=== PATIENT | female | born 1960 | race Caucasian/White ===

== ENCOUNTER 2017-02-02 14:18 | Emergency (ER) | payer BC ==
[~2017-02-02] VITALS: Ht 167.6 cm; Wt 76.0 kg
[~2017-02-02 14:18] MED LIST: DIAZ10TA PO; OMEP20TA PO; TRAZ150T75 PO; VARE1 PO
[2017-02-02 14:25] VITALS: BP 143/94; PULSE 61; RESP 16; TEMP 97.8; O2SAT 97
[2017-02-02] MEDS ORDERED: TRAZ100T6 PO (15:16)
[2017-02-02] MEDS ORDERED: PROG100C PO (15:16)
[2017-02-02] MEDS ORDERED: TEMA15CA PO (15:16)
[2017-02-02] MEDS ORDERED: ESTR1TAB PO (15:16)
[2017-02-02] MEDS ORDERED: SERT-129 PO (15:16)
[2017-02-02] MEDS ORDERED: DIAZ5TAB PO (15:16)
--- NOTE | 2017-02-02 15:25 | PD ---
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 Patient states that she went through menopause at age 52 which is 4 years ago. Patient started having low back pain and abdominal cramping pain about 10 days ago. Patient states that the pain lasted for several days. Patient started having vaginal bleeding for the past 6 days since then. Patient denies any headache. Patient denies any chest pain or shortness of breath. Patient denies abdominal pain now. Patient denies any dysuria or frequency. Patient denies any fever chills. Patient denies any back pain now. Patient has history of anxiety and taking Valium as needed for that. PFSH Past Medical History Hx Anticoagulant Therapy: No ADD: Yes Bipolar Disorder: Yes Anxiety: Yes Depression: Yes Diabetes: No Diminished Hearing: No Pancreatitis: Yes ?: Not Menopausal: Yes Past Surgical History Section: Yes (1982, 1986, 1988) Cholecystectomy: Yes (2004) Pacemaker: No Tonsillectomy: Yes (CHILDHOOD) Social History Alcohol Use: No (PT STATES IN RECOVERY started 5 wks.ago) Tobacco Use: No (QUIT 5 WKS. AGO) Substance Use: Yes (MARIJUANA)) Allergies-Medications (Allergen,Severity, Reaction): Coded Allergies: No Known Allergies (Verified , 02/02/17) Reported Meds & Prescriptions Reported Meds & Active Scripts Active Reported Estradiol 1 Mg Tab 1 Mg PO DAILY Trazodone (Trazodone HCl) 100 Mg Tablet 150 Mg PO BID Diazepam 5 Mg Tab 5 Mg PO Q4HR PRN Sertraline (Sertraline HCl) 100 Mg Tab 100 Mg PO DAILY Progesterone Micronized 100 Mg Cap 100 Mg PO DAILY Temazepam 15 Mg Cap 15 Mg PO HS PRN Review of Systems General / Constitutional: No: Fever Eyes: No: Visual changes HENT: No: Headaches Cardiovascular: No: Chest Pain or Discomfort Respiratory: No: Shortness of Breath Gastrointestinal: Positive: Abdominal Pain Genitourinary: Positive: Pelvic Pain, Vaginal Bleeding, No: Dysuria Musculoskeletal: No: Pain Skin: No Rash Neurologic: No: Weakness Psychiatric: No: Depression Endocrine: No: Polydipsia Hematologic/Lymphatic: No: Easy Bruising Physical Exam Narrative GENERAL: Well-nourished, well-developed patient. SKIN: Focused skin assessment warm/dry. HEAD: Normocephalic. EYES: No scleral icterus. No injection or drainage. NECK: Supple, trachea midline. No JVD or lymphadenopathy. CARDIOVASCULAR: Regular rate and rhythm without murmurs, gallops, or rubs. RESPIRATORY: Breath sounds equal bilaterally. No accessory muscle use. GASTROINTESTINAL: Abdomen soft, non-tender, nondistended. MUSCULOSKELETAL: No cyanosis, or edema. BACK: Nontender without obvious deformity. No CVA tenderness. DEVELOPMENT EXECUTIVE exam: Patient has small amount of blood in the vaginal vault. The cervix is closed. Uterus is mildly enlarged and nontender on palpation. No adnexal mass or tenderness. Data Data Last Documented VS Vital Signs Date Time Temp Pulse Resp B/P Pulse Ox O2 Delivery O2 Flow Rate FiO2 02/02/17 15:48 75 20 136/89 99 Room Air 02/02/17 14:25 97.8 Orders Complete Blood Count With Diff (02/02/17 15:18) Comprehensive Metabolic Panel (02/02/17 15:18) Us Pelvis Comp Film Technician/Non-Preg (02/02/17 ) Urinalysis - C+S If Indicated (02/02/17 15:18) Iv Access Insert/Monitor (02/02/17 15:18) Ecg Monitoring (02/02/17 15:18) Sodium Chlor 0.9% 1000 Ml Inj (Ns 1000 M (02/02/17 15:30) Lorazepam Inj (Ativan Inj) (02/02/17 15:30) MDM Medical Decision Making Medical Screen Exam Complete: Yes Emergency Medical Condition: Yes Differential Diagnosis Differential diagnosis including breakthrough bleeding, postmenopausal bleeding , uterine mass. Narrative Course 56-year-old female complains of postmenopausal vaginal bleeding. Diagnosis Primary Impression: Post-menopausal bleeding Loc Hutchinson MD Feb 02, 2017 15:25
[2017-02-02] MEDS ORDERED: SODIUM CHLOR 0.9% 1000 ML INJ 1,000 ML IV SCH (15:30)
[2017-02-02] MEDS ORDERED: LORazepam 2 MG/ML VIAL IV PUSH ONE (15:30)
[2017-02-02 15:42] LABS: BLOOD, URINE LARGE (NEG); GLUCOSE,URINE NEG (NEG); KETONE, URINE NEG (NEG); NITRITE,URINE NEG (NEG)
[2017-02-02 15:47] LABS: AUTOMATED NEUTROPHIL # 5.5 TH/MM3 (1.8-7.7); BASOPHIL # 0.1 TH/MM3 (0-0.2); BASOPHIL % 0.8 % (0.0-2.0); EOSINOPHIL # 0.2 TH/MM3 (0-0.4); EOSINOPHIL % 2.3 % (0.0-4.0); HEMATOCRIT 38.2 % (35.0-46.0); LYMPHOCYTE # 2.4 TH/MM3 (1.0-4.8); MEAN CELL VOLUME 90.5 FL (80.0-100.0); MEAN CORPUSCULAR HEMOGLOBIN 30.7 PG (27.0-34.0); MEAN CORPUSCULAR HGB CONC 33.9 % (32.0-36.0); MONO % 5.2 % (0.0-8.0); NEUT % 64.7 % (16.0-70.0); PLATELET COUNT 113 TH/MM3 (150-450); RED BLOOD COUNT 4.22 MIL/MM3 (4.00-5.30); RED CELL DISTRIBUTION WIDTH 12.4 % (11.6-17.2); WHITE BLOOD COUNT 8.7 TH/MM3 (4.0-11.0)
[2017-02-02 15:48] VITALS: BP 136/89; PULSE 75; RESP 20; O2SAT 99
[2017-02-02 15:48] LABS: HEMO FLAGS DIFF FINAL
[2017-02-02 15:55] LABS: CHLORIDE 109 MEQ/L (98-107); POTASSIUM 3.5 MEQ/L (3.5-5.1); SODIUM (NA) 144 MEQ/L (136-145)
[2017-02-02 15:59] LABS: ANION GAP 10 MEQ/L (5-15); BICARBONATE 25.5 MEQ/L (21.0-32.0); BLOOD UREA NITROGEN 13 MG/DL (7-18)
[2017-02-02 16:02] LABS: ALT (GPT) 35 U/L (10-53); AST (GOT) 15 U/L (15-37); GLOMERULAR FILTRATION RATE 106 ML/MIN (>89)
[2017-02-02 16:03] LABS: TOTAL BILIRUBIN ADULT 0.7 MG/DL (0.2-1.0)
[2017-02-02 16:05] LABS: ALKALINE PHOSPHATASE 78 U/L (45-117)
[2017-02-02 16:09] LABS: METHOD OF COLLECTION CLEAN CATCH; MUCUS URINE FEW /lpf (OCC); RBC, URINE 15-19 /hpf (0-3); URINE COLOR YELLOW (YELLW/STRAW); WBC, URINE 0-2 /hpf (0-5)
[2017-02-02 16:10] LABS: COMMENT (UR) CULT NOT INDICATED; CULTURE IF INDICATED CULT NOT INDICATED
--- NOTE | 2017-02-02 16:29 | RADHPO ---
EXAM DATE/TIME: 02/02/2017 16:01 [facility] COMPARISON: No previous studies available for comparison. INDICATIONS : Post menopausal bleeding. MEDICAL HISTORY : Pancreatitis. Seizures. Bipolar disorder. Depression. Anxiety. SURGICAL HISTORY : Tonsillectomy. Cholecystectomy. section. Removal of choledocholithiasis. ENCOUNTER: Initial ACUITY: 2 days PAIN SCORE: 1/10 LOCATION: Bilateral pelvis MEASUREMENTS: UTERUS: 10.4 x 4.3 x 6.4 cm ENDOMETRIAL STRIPE: 5 mm RIGHT OVARY: 1.9 x 1.2 x 1.2 cm LEFT OVARY: 2.4 x 1.2 x 1.8 cm FINDINGS: UTERUS: The myometrium has homogeneous echotexture without mass. Endometrial stripe is homogeneous. RIGHT OVARY: Ovary contains no mass or significant cystic lesion. LEFT OVARY: Ovary contains no mass or significant cystic lesion. MISCELLANEOUS: No free fluid. CONCLUSION: 1. Unremarkable pelvic ultrasound examination. Specifically, homogeneous normal appearing endometrial stripe. Bonifacio Elkins MD on February 02, 2017 at 16:25 Board Certified Radiologist. This report was verified electronically.
--- NOTE | 2017-02-02 16:34 | PD ---
Physical Exam Narrative Received sign out from previous team to follow up labs and US. 56yo F with post menopausal vaginal bleeding for 6 days. VS stable. Labs reviewed, no leukocytosis. H/H stable at 12.9/38.2. Mild thrombocytopenia at 113,000, pt had mild thrombocytopenia before. CMP unremarkable. Pt has no abdominal tenderness on exam. US unremarkable. Normal endometrial stripe. Pt states she is on estrogen and progesterone for menopausal symptoms. This bleeding may be related to hormone use but pt still needs to follow up with [facility] for endometrial biopsy to r/o endometrial cancer in vaginal bleeding in post menopausal woman. Instructed pt to follow up with [facility] as outpatient. 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 (02/02/17 ) Urinalysis - C+S If Indicated (02/02/17 15:18) Iv Access Insert/Monitor (02/02/17 15:18) Ecg Monitoring (02/02/17 15:18) Sodium Chlor 0.9% 1000 Ml Inj (Ns 1000 M (02/02/17 15:30) Lorazepam Inj (Ativan Inj) (02/02/17 15:30) Labs Laboratory Tests Test 02/02/17 02/02/17 15:20 15:33 Urine Collection Type CLEAN CATCH Urine Color YELLOW Urine Turbidity CLEAR Urine pH 6.0 Urine Specific [place] 1.025 Urine Protein NEG mg/dL Urine Glucose (UA) NEG mg/dL Urine Ketones NEG mg/dL Urine Occult Blood LARGE Urine Nitrite NEG Urine Bilirubin NEG Urine Leukocyte Esterase NEG Urine RBC 15-19 /hpf Urine WBC 0-2 /hpf Urine Squamous Epithelial 6-8 /hpf Cells Urine Mucus FEW /lpf Microscopic Urinalysis Comment CULT NOT INDICATED Urine Collection Time 15:20 White Blood Count 8.7 TH/MM3 Red Blood Count 4.22 MIL/MM3 Hemoglobin 12.9 GM/DL Hematocrit 38.2 % Mean Corpuscular Volume 90.5 FL Mean Corpuscular Hemoglobin 30.7 PG Mean Corpuscular Hemoglobin 33.9 % Concent Red Cell Distribution Width 12.4 % Platelet Count 113 TH/MM3 Mean Platelet Volume 10.1 FL Neutrophils (%) (Auto) 64.7 % Lymphocytes (%) (Auto) 27.0 % Monocytes (%) (Auto) 5.2 % Eosinophils (%) (Auto) 2.3 % Basophils (%) (Auto) 0.8 % Neutrophils # (Auto) 5.5 TH/MM3 Lymphocytes # (Auto) 2.4 TH/MM3 Monocytes # (Auto) 0.5 TH/MM3 Eosinophils # (Auto) 0.2 TH/MM3 Basophils # (Auto) 0.1 TH/MM3 CBC Comment DIFF FINAL Differential Comment Sodium Level 144 MEQ/L Potassium Level 3.5 MEQ/L Chloride Level 109 MEQ/L Carbon Dioxide Level 25.5 MEQ/L Anion Gap 10 MEQ/L Blood Urea Nitrogen 13 MG/DL Creatinine 0.59 MG/DL Estimat Glomerular Filtration 106 ML/MIN Rate Random Glucose 91 MG/DL Calcium Level 8.5 MG/DL Total Bilirubin 0.7 MG/DL Aspartate Amino Transf 15 U/L (AST/SGOT) Alanine Aminotransferase 35 U/L (ALT/SGPT) Alkaline Phosphatase 78 U/L Total Protein 7.1 GM/DL Albumin 3.8 GM/DL MDM Supervised Visit with NI: No Diagnosis Primary Impression: Post-menopausal bleeding Referrals: Magy Womack MD call for appointment Post menopausal bleeding. Patient Instructions: General Instructions Departure Forms: Tests/Procedures Additional Instruction: Please follow up with mill stenciler in 1-2 days for work up of post menopausal bleeding. Med/Other Pt SpecificInfo: No Change to Meds Disposition: 01 DISCHARGE HOME Condition: Stable (ERASED) Chelsi Vigil DO Feb 02, 2017 16:34
== END 2017-02-02 16:55 | disposition home or self-care (01) ==
LOC: PHED 14:18
DX: N95.0 Postmenopausal bleeding (principal)
CPT/HCPCS: 76856; 80053; 81001; 85025; 96361; 96374; 99285; J2060; J7030

== ENCOUNTER 2018-01-24 18:46 | Emergency (ER) | payer SELFPAY ==
[~2018-01-24] VITALS: Ht 165.1 cm; Wt 82.0 kg
[~2018-01-24 18:46] MED LIST changes: -DIAZ10TA PO; +DIAZ5TAB PO; +ESTR1TAB PO; -OMEP20TA PO; +PROG100C PO; +SERT-129 PO; +TEMA15CA PO; +TRAZ100T10 PO; -TRAZ150T75 PO; -VARE1 PO
[2018-01-24 18:48] VITALS: PULSE 87; RESP 16; TEMP 97.5; O2SAT 100
--- NOTE | 2018-01-24 19:14 | PD ---
HPI Chief Complaint: Abdominal Pain Time Seen by Provider: 19:08 Travel History International Travel<30 days: No Contact w/Intl Traveler<30days: No Traveled to known affect area: No History of Present Illness HPI 57-year-old female presented the ER for evaluation of abdominal pain. Abdominal pain rated 8 out of 10, comes and goes for the last few days, located in the right upper quadrant, dull in nature, nothing makes it better but movement makes it worse, associated with nausea but no vomiting. Patient is been having the pain for the last 3 days but decided to come to the ER today since the pain is been getting worse. She has no fever or shortness of breath or chest pain, she has no diarrhea and have a normal bowel movement. Patient has history of gastritis in the past but states she does not take anything for it, she also has history of post manic stress disorder and ulcerative colitis. Patient states that she does not take anything for her ulcerative colitis, she only took half a pill of her psychiatric medications but she was about to throw it up, she tried cranberry juice for her pain but that did not help. Patient had a colonoscopy about 2 years ago in an outside hospital and she states that how she was diagnosed with ulcerative colitis. PFSH Past Medical History Hx Anticoagulant Therapy: No ADD: Yes Bipolar Disorder: Yes Anxiety: Yes Depression: Yes Diabetes: No Diminished Hearing: No Pancreatitis: Yes ?: Not Menopausal: Yes Past Surgical History Section: Yes (1982, 1986, 1988) Cholecystectomy: Yes (2004) Pacemaker: No Tonsillectomy: Yes (CHILDHOOD) Social History Alcohol Use: No (PT STATES IN RECOVERY started 5 wks.ago) Tobacco Use: No (QUIT 5 WKS. AGO) Substance Use: Yes (MARIJUANA)) Allergies-Medications (Allergen,Severity, Reaction): Coded Allergies: No Known Allergies (Verified Allergy, Unknown, 01/24/18) Reported Meds & Prescriptions Reported Meds & Active Scripts Active Reported Tylenol (Acetaminophen) 325 Mg Tab 650 Mg PO Q4H PRN Ibuprofen 400 Mg Tab 400 Mg PO Q6H PRN Venlafaxine ER 24 HR (Venlafaxine HCl) 150 Mg Cap 150 Mg PO DAILY Xanax (Alprazolam) 2 Mg Tab 2 Mg PO Q8H PRN Trazodone (Trazodone HCl) 100 Mg Tablet 150 Mg PO BID Temazepam 15 Mg Cap 15 Mg PO HS PRN Review of Systems Except as stated in HPI: all other systems reviewed are Neg Physical Exam Narrative GENERAL: Alert oriented 3 no acute distress SKIN: Focused skin assessment warm/dry. HEAD: Atraumatic. Normocephalic. EYES: Pupils equal and round. No scleral icterus. No injection or drainage. ENT: No nasal bleeding or discharge. Mucous membranes pink and moist. NECK: Trachea midline. No JVD. CARDIOVASCULAR: Regular rate and rhythm. No murmur appreciated. RESPIRATORY: No accessory muscle use. Clear to auscultation. Breath sounds equal bilaterally. GASTROINTESTINAL: Mild right upper quadrant tenderness without rebound, no masses, abdomen soft, distended. Hepatic and splenic margins not palpable. MUSCULOSKELETAL: No obvious deformities. No clubbing. No cyanosis. No edema. NEUROLOGICAL: Awake and alert. No obvious cranial nerve deficits. Motor grossly within normal limits. Normal speech. PSYCHIATRIC: Appropriate mood and affect; insight and judgment normal. Data Data Last Documented VS Vital Signs Date Time Temp Pulse Resp B/P (MAP) Pulse Ox O2 Delivery O2 Flow Rate FiO2 01/24/18 19:05 20 01/24/18 18:48 97.5 87 100 Orders Orders Complete Blood Count With Diff (01/24/18 19:08) Comprehensive Metabolic Panel (01/24/18 19:08) Lipase (01/24/18 19:08) Act Partial Throm Time (Ptt) (01/24/18 19:08) Prothrombin Time / Inr (Pt) (01/24/18 19:08) Troponin I (01/24/18 19:08) Urinalysis - C+S If Indicated (01/24/18 19:08) Ct Abd/Pel W Iv Contrast(Rout) (01/24/18 ) Lorazepam Inj (Ativan Inj) (01/24/18 19:15) Sodium Chlor 0.9% 1000 Ml Inj (Ns 1000 M (01/24/18 19:15) Pantoprazole Inj (Protonix Inj) (01/24/18 19:15) Iohexol 350 Inj (Omnipaque 350 Inj) (01/24/18 20:17) Potassium Chloride (Kcl) (01/24/18 20:30) Ed Discharge Order (01/24/18 20:53) Labs Laboratory Tests Test 01/24/18 19:30 White Blood Count 9.5 TH/MM3 Red Blood Count 4.94 MIL/MM3 Hemoglobin 15.2 GM/DL Hematocrit 44.1 % Mean Corpuscular Volume 89.4 FL Mean Corpuscular Hemoglobin 30.9 PG Mean Corpuscular Hemoglobin Concent 34.5 % Red Cell Distribution Width 11.8 % Platelet Count 146 TH/MM3 Mean Platelet Volume 9.6 FL Neutrophils (%) (Auto) 58.3 % Lymphocytes (%) (Auto) 30.2 % Monocytes (%) (Auto) 7.4 % Eosinophils (%) (Auto) 2.2 % Basophils (%) (Auto) 1.9 % Neutrophils # (Auto) 5.5 TH/MM3 Lymphocytes # (Auto) 2.9 TH/MM3 Monocytes # (Auto) 0.7 TH/MM3 Eosinophils # (Auto) 0.2 TH/MM3 Basophils # (Auto) 0.2 TH/MM3 CBC Comment DIFF FINAL Differential Comment Prothrombin Time 11.2 SEC Prothromb Time International Ratio 1.1 RATIO Activated Partial Thromboplast Time 24.1 SEC Urine Color YELLOW Urine Turbidity CLEAR Urine pH 6.0 Urine Specific [place] 1.020 Urine Protein NEG mg/dL Urine Glucose (UA) NEG mg/dL Urine Ketones NEG mg/dL Urine Occult Blood NEG Urine Nitrite NEG Urine Bilirubin NEG Urine Urobilinogen 0.2 MG/DL Urine Leukocyte Esterase NEG Urine RBC 0-3 /hpf Urine Squamous Epithelial Cells 0-5 /hpf Urine Bacteria RARE /hpf Urine Mucus FEW /lpf Microscopic Urinalysis Comment CULT NOT INDICATED Blood Urea Nitrogen 12 MG/DL Creatinine 0.57 MG/DL Random Glucose 88 MG/DL Total Protein 7.9 GM/DL Albumin 4.0 GM/DL Calcium Level 8.9 MG/DL Alkaline Phosphatase 103 U/L Aspartate Amino Transf (AST/SGOT) 31 U/L Alanine Aminotransferase (ALT/SGPT) 58 U/L Total Bilirubin 0.8 MG/DL Sodium Level 138 MEQ/L Potassium Level 3.2 MEQ/L Chloride Level 106 MEQ/L Carbon Dioxide Level 23.0 MEQ/L Anion Gap 9 MEQ/L Estimat Glomerular Filtration Rate 110 ML/MIN Troponin I LESS THAN 0.02 NG/ML Lipase 122 U/L MDM Medical Decision Making Medical Screen Exam Complete: Yes Emergency Medical Condition: Yes Differential Diagnosis Gastritis, GERD, perforation, peptic ulcer disease. Narrative Course 57-year-old female here for evaluation of abdominal pain. Physical examination is unremarkable, vitals are stable and she is not in acute distress. Patient was given IV Protonix and she dramatically improved, labs are within normal limits, scan shows no acute findings. Patient denies any vomiting or any blood in the stool and says that she feels much better after the Protonix. I will give the patient a trial of Protonix to take home with her meanwhile I encouraged her to follow-up with his [facility] clinic and to return here if symptoms change or do not improve. Patient may need EGD to rule out any peptic ulcer disease and she may need workup for H pylori if her symptoms continue to mother and I explained those issues with the patient and she understands. Last 24 hours Impressions Abdomen/Pelvis CT 01/24/18 0000 Signed Impressions: CONCLUSION: 1. No acute findings on abdomen and pelvic CT. Mild fatty liver. Previous chol ecystectomy. Laboratory Tests Test 01/24/18 19:30 White Blood Count 9.5 TH/MM3 Red Blood Count 4.94 MIL/MM3 Hemoglobin 15.2 GM/DL Hematocrit 44.1 % Mean Corpuscular Volume 89.4 FL Mean Corpuscular Hemoglobin 30.9 PG Mean Corpuscular Hemoglobin Concent 34.5 % Red Cell Distribution Width 11.8 % Platelet Count 146 TH/MM3 Mean Platelet Volume 9.6 FL Neutrophils (%) (Auto) 58.3 % Lymphocytes (%) (Auto) 30.2 % Monocytes (%) (Auto) 7.4 % Eosinophils (%) (Auto) 2.2 % Basophils (%) (Auto) 1.9 % Neutrophils # (Auto) 5.5 TH/MM3 Lymphocytes # (Auto) 2.9 TH/MM3 Monocytes # (Auto) 0.7 TH/MM3 Eosinophils # (Auto) 0.2 TH/MM3 Basophils # (Auto) 0.2 TH/MM3 CBC Comment DIFF FINAL Differential Comment Prothrombin Time 11.2 SEC Prothromb Time International Ratio 1.1 RATIO Activated Partial Thromboplast Time 24.1 SEC Urine Color YELLOW Urine Turbidity CLEAR Urine pH 6.0 Urine Specific [place] 1.020 Urine Protein NEG mg/dL Urine Glucose (UA) NEG mg/dL Urine Ketones NEG mg/dL Urine Occult Blood NEG Urine Nitrite NEG Urine Bilirubin NEG Urine Urobilinogen 0.2 MG/DL Urine Leukocyte Esterase NEG Urine RBC 0-3 /hpf Urine Squamous Epithelial Cells 0-5 /hpf Urine Bacteria RARE /hpf Urine Mucus FEW /lpf Microscopic Urinalysis Comment CULT NOT INDICATED Blood Urea Nitrogen 12 MG/DL Creatinine 0.57 MG/DL Random Glucose 88 MG/DL Total Protein 7.9 GM/DL Albumin 4.0 GM/DL Calcium Level 8.9 MG/DL Alkaline Phosphatase 103 U/L Aspartate Amino Transf (AST/SGOT) 31 U/L Alanine Aminotransferase (ALT/SGPT) 58 U/L Total Bilirubin 0.8 MG/DL Sodium Level 138 MEQ/L Potassium Level 3.2 MEQ/L Chloride Level 106 MEQ/L Carbon Dioxide Level 23.0 MEQ/L Anion Gap 9 MEQ/L Estimat Glomerular Filtration Rate 110 ML/MIN Troponin I LESS THAN 0.02 NG/ML Lipase 122 U/L Diagnosis Primary Impression: Gastritis Qualified Codes: K29.00 - Acute gastritis without bleeding Referrals: [facility] Additional Instructions: Follow-up with the clinic and return here if symptoms change or do not improve. Scripts Pantoprazole (Protonix) 40 Mg Tab 40 MG PO DAILY for Reflux, #14 TAB 0 Refills Prov: Leif Hess MD 01/24/18 Disposition: DISCHARGE HOME Condition: Stable Leif Hess MD Jan 24, 2018 19:14
[2018-01-24] MEDS ORDERED: PANTOPRAZOLE SODIUM 40 MG VIAL IV PUSH ONE (19:15)
[2018-01-24] MEDS ORDERED: LORazepam 2 MG/ML VIAL IV PUSH ONE (19:15)
[2018-01-24] MEDS ORDERED: SODIUM CHLOR 0.9% 1000 ML INJ 1,000 ML IV ONE (19:15)
[2018-01-24] MEDS ORDERED: XANA2TAB2 PO (19:16)
[2018-01-24] MEDS ORDERED: IBUP1TAB5 PO (19:16)
[2018-01-24] MEDS ORDERED: VENL150C39 PO (19:16)
[2018-01-24] MEDS ORDERED: TYLE325T PO (19:16)
[2018-01-24 19:48] LABS: AUTOMATED NEUTROPHIL # 5.5 TH/MM3 (1.8-7.7); BASOPHIL # 0.2 TH/MM3 (0-0.2); BASOPHIL % 1.9 % (0.0-2.0); BILIRUBIN, URINE NEG (NEG); BLOOD, URINE NEG (NEG); EOSINOPHIL # 0.2 TH/MM3 (0-0.4); EOSINOPHIL % 2.2 % (0.0-4.0); GLUCOSE,URINE NEG (NEG); HEMATOCRIT 44.1 % (35.0-46.0); HEMOGLOBIN 15.2 GM/DL (11.6-15.3); KETONE, URINE NEG (NEG); LYMPH % 30.2 % (9.0-44.0); LYMPHOCYTE # 2.9 TH/MM3 (1.0-4.8); MEAN CELL VOLUME 89.4 FL (80.0-100.0); MEAN CORPUSCULAR HEMOGLOBIN 30.9 PG (27.0-34.0); MEAN CORPUSCULAR HGB CONC 34.5 % (32.0-36.0); MEAN PLATELET VOLUME 9.6 FL (7.0-11.0); MONO % 7.4 % (0.0-8.0); MONOCYTE # 0.7 TH/MM3 (0-0.9); NEUT % 58.3 % (16.0-70.0); NITRITE,URINE NEG (NEG); PLATELET COUNT 146 TH/MM3 (150-450); RED BLOOD COUNT 4.94 MIL/MM3 (4.00-5.30); RED CELL DISTRIBUTION WIDTH 11.8 % (11.6-17.2); URINE COLOR YELLOW (YELLW/STRAW); URINE LEUKOCYTE ESTERASE NEG (NEG); WHITE BLOOD COUNT 9.5 TH/MM3 (4.0-11.0)
[2018-01-24 19:53] LABS: MUCUS URINE FEW /lpf (OCC)
[2018-01-24 19:55] LABS: BACTERIA, URINE RARE /hpf; RBC, URINE 0-3 /hpf (0-3); SQUAMOUS EPITHELIAL CELL URINE 0-5 /hpf (0-5)
[2018-01-24 19:56] LABS: CHLORIDE 106 MEQ/L (98-107); SODIUM (NA) 138 MEQ/L (136-145)
[2018-01-24 20:00] LABS: CALCIUM 8.9 MG/DL (8.5-10.1); INTERNATIONAL NORMALIZED RATIO 1.1 RATIO; PROTHROMBIN TIME - PATIENT 11.2 SEC (9.8-11.6)
[2018-01-24 20:01] LABS: BLOOD UREA NITROGEN 12 MG/DL (7-18); GLUCOSE,RANDOM 88 MG/DL (74-106)
[2018-01-24 20:03] LABS: ALT (GPT) 58 U/L (10-53); AST (GOT) 31 U/L (15-37)
[2018-01-24 20:04] LABS: CREATININE 0.57 MG/DL (0.50-1.00); GLOMERULAR FILTRATION RATE 110 ML/MIN (>89)
[2018-01-24 20:05] LABS: TOTAL BILIRUBIN ADULT 0.8 MG/DL (0.2-1.0); TOTAL PROTEIN 7.9 GM/DL (6.4-8.2)
[2018-01-24 20:06] LABS: ALKALINE PHOSPHATASE 103 U/L (45-117)
[2018-01-24 20:08] LABS: TROPONIN I LESS THAN 0.02 NG/ML (0.02-0.05)
[2018-01-24] MEDS ORDERED: IOHEXOL 350 MG/ML 10 ML VIAL (for RAD DIAG) IVCONTRAST ONE (20:17)
[2018-01-24] MEDS ORDERED: POTASSIUM CHLORIDE 20 MEQ CONTROLLED RELEASE TAB PO ONE (20:30)
--- NOTE | 2018-01-24 20:41 | RADRPT ---
EXAM DATE: 01/24/2018 8:20 PM EDT AGE/SEX: 57 years / Female INDICATIONS: Right upper quadrant pain for two days. CLINICAL DATA: This is the patient's initial encounter. Patient reports that signs and symptoms have been present for 2 days and indicates a pain score of 8/10. MEDICAL/SURGICAL HISTORY: Pancreatitis. Cholecystectomy. section. ORAL CONTRAST: No oral contrast ingested. RADIATION DOSE: 17.18 CTDI (mGy) COMPARISON: No prior [facility] exams available for comparison. TECHNIQUE: Multiple contiguous axial images were obtained through the abdomen and pelvis following b olus infusion of 100 ml Omnipaque 350 (iohexol) nonionic water-soluble contrast as a single exam do se. No oral contrast ingested. Using automated exposure control and adjustment of the mA and/or kV a ccording to patient size, the radiation dose was kept as low as reasonably achievable to obtain optim al diagnostic quality images. FINDINGS: Lung bases are clear. Mild fatty liver. Spleen, adrenals, kidneys and pancreas unremarkable. Postoperative cholecystectomy. There is no free air or free fluid. No bowel obstruction. No adenopathy. No acute bony abnormalities. CONCLUSION: 1. No acute findings on abdomen and pelvic CT. Mild fatty liver. Previous cholecystectomy. Electronically signed by: Vinny Devi MD 01/24/2018 8:40 PM EDT
[2018-01-24] MEDS ORDERED: PROT40TA PO ×2 (20:56→20:57)
[2018-01-24 21:10] VITALS: BP 140/92
== END 2018-01-24 21:12 | disposition home or self-care (01) ==
LOC: PHED 18:46
DX: K29.00 Acute gastritis without bleeding (principal); F31.9 Bipolar disorder, unspecified; F41.9 Anxiety disorder, unspecified; K51.90 Ulcerative colitis, unspecified, without complications; F12.90 Cannabis use, unspecified, uncomplicated; Z87.891 Personal history of nicotine dependence
CPT/HCPCS: 74177; 80053; 81001; 83690; 84484; 85025; 85610; 85730; 96361; 96374; 96375; 99285; C9113; J2060; J7030; Q9967

== ENCOUNTER 2018-02-10 17:39 | Emergency (ER) | payer SELFPAY ==
[~2018-02-10] VITALS: Ht 167.6 cm; Wt 80.0 kg
[~2018-02-10 17:39] MED LIST changes: -DIAZ5TAB PO; -ESTR1TAB PO; +IBUP1TAB5 PO; -PROG100C PO; +PROT40TA PO; -SERT-129 PO; +TYLE325T PO; +VENL150C39 PO; +XANA2TAB2 PO
[2018-02-10 17:46] VITALS: BP 152/90; PULSE 80; RESP 18; TEMP 97.2; O2SAT 96
--- NOTE | 2018-02-10 18:02 | PD ---
HPI Chief Complaint: Oral / Dental Pain or Problem Time Seen by Provider: 17:57 Travel History International Travel<30 days: No Contact w/Intl Traveler<30days: No Traveled to known affect area: No History of Present Illness HPI 57-year-old female presents emergency department for evaluation of left maxillary second molar pain. Pain has been ongoing for several weeks, but has become acutely worse over the last 2-3 days. She denies any trauma. No fever chills. States pain is a constant, throbbing, 10 out of 10. She feels like it is worse when she tries to bite down. She denies any fever or chills. She denies any nausea, vomiting, diarrhea. She has no other symptoms to report. She does not have a dentist. PFSH Past Medical History Hx Anticoagulant Therapy: No ADD: Yes Bipolar Disorder: Yes Anxiety: Yes Depression: Yes Diabetes: No Diminished Hearing: No GERD: Yes Neurologic: Yes (PTSD) Pancreatitis: Yes ?: Not Menopausal: Yes : 4 Para: 4 Past Surgical History Abdominal Surgery: Yes (ENDOSCOPY) Section: Yes (1982, 1986, 1988) Cholecystectomy: Yes (2004) Pacemaker: No Tonsillectomy: Yes (CHILDHOOD) Social History Alcohol Use: No Tobacco Use: No (STATES QUIT 01/17/18) Substance Use: Yes (MARIJUANA)) Allergies-Medications (Allergen,Severity, Reaction): Coded Allergies: No Known Allergies (Verified Allergy, Unknown, 02/10/18) Reported Meds & Prescriptions Reported Meds & Active Scripts Active Protonix (Pantoprazole Sodium) 40 Mg Tab 40 Mg PO DAILY Reported Tylenol (Acetaminophen) 325 Mg Tab 650 Mg PO Q4H PRN Ibuprofen 400 Mg Tab 400 Mg PO Q6H PRN Venlafaxine ER 24 HR (Venlafaxine HCl) 150 Mg Cap 150 Mg PO DAILY Xanax (Alprazolam) 2 Mg Tab 2 Mg PO Q8H PRN Trazodone (Trazodone HCl) 100 Mg Tablet 150 Mg PO BID Temazepam 15 Mg Cap 15 Mg PO HS PRN Review of Systems Except as stated in HPI: all other systems reviewed are Neg Physical Exam Narrative GENERAL: Well-nourished, well-developed female patient in no acute distress SKIN: Focused skin assessment warm/dry. HEAD: Normocephalic. No erythema or edema EYES: No scleral icterus. No injection or drainage. ENT: Mucosa pink and moist. No erythema or exudates. No uvular edema. No uvular , palatal, or tonsillar deviation. Airway patent. Nasal turbinates appear normal without nasal blood, purulent drainage or septal hematoma. DENTAL: No loose or chipped teeth. There is a cavity in the left maxillary second molar. Mild gingival erythema and edema. No appreciable abscess. No malocclusion. NECK: Supple, trachea midline. No JVD or lymphadenopathy. CARDIOVASCULAR: Regular rate and rhythm without murmurs, gallops, or rubs. RESPIRATORY: Breath sounds equal bilaterally. No accessory muscle use. Data Data Last Documented VS Vital Signs Date Time Temp Pulse Resp B/P (MAP) Pulse Ox O2 Delivery O2 Flow Rate FiO2 02/10/18 17:46 97.2 80 18 152/90 (110) 96 Orders Orders Ketorolac Inj (Toradol Inj) (02/10/18 18:15) Ed Discharge Order (02/10/18 18:05) MDM Medical Decision Making Medical Screen Exam Complete: Yes Emergency Medical Condition: Yes Medical Record Reviewed: Yes Differential Diagnosis Dental caries versus pulpitis versus gingivitis versus periodontal disease Narrative Course 57-year-old female presents emergency department for evaluation of dental pain. There is a dental carry with mild gingival erythema and edema of the left maxillary second molar. Patient will be treated for pain and started on oral antibiotics and Peridex oral rinse. She is encouraged to seek dental evaluation. She agrees to return immediately with acute worsening symptoms. Diagnosis Primary Impression: Dentalgia Additional Impression: Gingivitis Referrals: Dentist Primary Care Physician Patient Instructions: Dental Caries (ED), General Instructions Additional Instructions: Seek dental evaluation Follow-up with a primary care provider Return immediately with acute worsening symptoms Med/Other Pt SpecificInfo: Prescription(s) given Scripts Ibuprofen (Ibuprofen) 600 Mg Tab 600 MG PO Q8HR Y for PAIN, #30 TAB 0 Refills Prov: Lindsay Anderson 02/10/18 Chlorhexidine Gluconate (Mouth) Liq (Peridex Liq) 0.12% Soln 15 ML SWISH-SPIT BID, #473 ML 0 Refills Prov: Lindsay Anderson 02/10/18 Penicillin V Potassium (Penicillin V Potassium) 500 Mg Tab 500 MG PO Q6H for Infection for 10 Days, #40 TAB 0 Refills Prov: Lindsay Anderson 02/10/18 Disposition: 01 DISCHARGE HOME Condition: Stable Lindsay Anderson Feb 10, 2018 18:02
[2018-02-10] MEDS ORDERED: IBUP-232 PO (18:08)
[2018-02-10] MEDS ORDERED: PERI0.126 SWISH-SPIT (18:08)
[2018-02-10] MEDS ORDERED: PENI500T PO (18:08)
[2018-02-10] MEDS ORDERED: KETOROLAC TROMETHAMINE 60 MG/2 ML (IM) VIAL IM ONE (18:15)
== END 2018-02-10 18:18 | disposition home or self-care (01) ==
LOC: PHEFT 17:39
DX: K08.89 Other specified disorders of teeth and supporting structures (principal); K05.10 Chronic gingivitis, plaque induced; K21.9 Gastro-esophageal reflux disease without esophagitis; F98.8 Other specified behavioral and emotional disorders with onset usually occurring in childhood and adolescence; F31.9 Bipolar disorder, unspecified; F41.8 Other specified anxiety disorders; Z87.891 Personal history of nicotine dependence
CPT/HCPCS: 96372; 99283; J1885